=== PATIENT | female | born 1985 ===

== ENCOUNTER 2021-01-31 14:34 | Emergency (ER) | payer OTHER ==
--- NOTE | 2021-01-31 18:26 | ER ---
Nurse's Notes [facility] Name: Laurita Tafoya Age: 36 yrs Sex: Female : 1985 Arrival Date: 01/31/2021 Time: 14:36 Bed 24 Private MD: Diagnosis: Other depressive episodes;Anxiety disorder, unspecified Presentation: 01/31 14:44 Chief complaint: Patient states: "We found a bat this morning in my daughters room and vg1 its been for a couple weeks and feel like something may have happened to my kids". Coronavirus screen: Client denies travel out of the [place] in the last 14 days. Ebola Screen: Patient negative for fever greater than or equal to 101.5 degrees Fahrenheit, and additional compatible Ebola Virus Disease symptoms. Initial Sepsis Screen: Does the patient meet any 2 criteria? No. Patient's initial sepsis screen is negative. Does the patient have a suspected source of infection? No. Patient's initial sepsis screen is negative. Risk Assessment: Do you want to hurt yourself or someone else? Patient reports no desire to harm self or others. Onset of symptoms was January 31, 2021. 14:44 Method Of Arrival: Ambulatory vg1 14:44 Acuity: JO ANN 3 vg1 Triage Assessment: 14:46 General: Appears in no apparent distress. uncomfortable, Behavior is cooperative, vg1 anxious. Pain: Denies pain. 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 - Social history:: Smoking status: Patient denies any tobacco usage or history of. Screenin:56 Abuse screen: Denies threats or abuse. Denies injuries from another. Nutritional zb screening: No deficits noted. Tuberculosis screening: No symptoms or risk factors identified. Fall Risk None identified. Assessment: 16:56 General: Appears in no apparent distress. Behavior is anxious, flat. Pain: Denies pain. zb Neuro: Level of Consciousness is awake, alert, obeys commands, Oriented to person, place, time, situation. Cardiovascular: Patient's skin is warm and dry. Respiratory: Airway is patent. GI: No deficits noted. Derm: Skin is intact, is healthy with good turgor. Musculoskeletal: Range of motion: intact in all extremities. 18:16 Reassessment: Patient appears in no apparent distress at this time. Patient and/or zb family updated on plan of care and expected duration. Pain level reassessed. Patient is alert, oriented x 3, equal unlabored respirations, skin warm/dry/pink. hospitalist at bedside. 18:38 Reassessment: Patient appears in no apparent distress at this time. Patient and/or zb family updated on plan of care and expected duration. Pain level reassessed. Patient is alert, oriented x 3, equal unlabored respirations, skin warm/dry/pink. d/c instructions given. patient ambulated out with . gait even and steady. Vital Signs: 14:44 BP 138 / 97; Pulse 101; Resp 18; Temp 98.9; Pulse Ox 100% ; Weight 58.97 kg; Height 5 vg1 ft. 4 in. (162.56 cm); Pain 0/10; 16:57 BP 122 / 85; Pulse 85; Resp 16; Pulse Ox 100% on R/A; zb 18:17 BP 124 / 74; Pulse 84; Resp 16; Pulse Ox 98% on R/A; zb 14:44 Body Mass Index 22.31 (58.97 kg, 162.56 cm) vg1 ED Course: 14:36 Patient arrived in ED. bp1 14:46 Triage completed. vg1 14:46 Arm band placed on Patient placed in waiting room, Patient notified of wait time. vg1 16:35 Cain Pang PA is PHCP. jm 16:35 Aquilino Zepeda MD is Attending Physician. jmm 16:55 Thuy Arias, RN is Primary Nurse. zb 16:56 Patient has correct armband on for positive identification. Bed in low position. Call zb light in reach. Pulse ox on. NIBP on. Door closed. Noise minimized. 17:37 Aquilino Zepeda MD is Attending Physician. kdr 18:16 Thuy Arias, RN is Primary Nurse. zb 18:39 No provider procedures requiring assistance completed. Patient did not have IV access zb during this emergency room visit. Administered Medications: No medications were administered Outcome: 18:25 Discharge ordered by . kdr 18:39 Discharged to home ambulatory. zb 18:39 Condition: stable 18:39 Discharge instructions given to patient, Instructed on discharge instructions, follow up and referral plans. medication usage, Demonstrated understanding of instructions, follow-up care, medications, Prescriptions given X 1. 18:39 Patient left the ED. zb Signatures: Aquilino Zepeda MD MD kdr Mickail, Joel, PA PA jmm Garcia, Victoria, RN RN vg1 Val Reyes Zipporah, RN RN zb Corrections: (The following items were deleted from the chart) 14:49 14:44 Acuity: JO ANN 4 vg1 vg1
--- NOTE | 2021-01-31 18:26 | EDPHYS ---
Physician Documentation [facility] Name: Laurita Tafoya Age: 36 yrs Sex: Female : 1985 Arrival Date: 01/31/2021 Time: 14:36 Bed 24 Private MD: ED Physician Aquilino Zepeda HPI: 01/31 18:30 This 36 yrs old Female presents to ER via Ambulatory with complaints of kdr Anxiety. 18:30 The patient presents to the emergency department with anxiety, Possible rabid bat kdr exposure, depression, Recently started on Lexapro for depression. Has had depression in the past but has not sought treatment until now. She has an appointment tonight with counselor/psychiatrist at 7:00 PM. She denies SI/HI or any past history of materialized self harm.. Onset: The symptoms/episode began/occurred at an unknown time. and became worse and became persistent. Past psychiatric history: Prior diagnosis: no previous psychiatric diagnosis known, Psychiatric medications include: none, Primary psychiatric physician: the patient does not have a primary psychiatric physician, the patient has not had a prior suicide gesture, the patient does not have a previous inpatient psychiatric history. Associated signs and symptoms: Pertinent positives; anxiety, depression, Pertinent negatives: abdominal pain, homicidal ideation, palpitations, paranoia, suicide ideation. Severity of symptoms: At their worst the symptoms were mild moderate just prior to arrival, in the emergency department the symptoms are unchanged. The patient has not experienced similar symptoms in the past. The patient has been recently seen by a physician: the patient's primary care provider. 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 - Social history:: Smoking status: Patient denies any tobacco usage or history of. ROS: 18:30 Constitutional: Negative for fever, chills, and weight loss, Eyes: Negative for injury, kdr pain, redness, and discharge, ENT: Negative for injury, pain, and discharge, Neck: Negative for injury, pain, and swelling, Cardiovascular: Negative for chest pain, palpitations, and edema, Respiratory: Negative for shortness of breath, cough, wheezing, and pleuritic chest pain, Abdomen/GI: Negative for abdominal pain, nausea, vomiting, diarrhea, and constipation, Back: Negative for injury and pain, : Negative for injury, bleeding, discharge, and swelling, MS/Extremity: Negative for injury and deformity, Skin: Negative for injury, rash, and discoloration, Neuro: Negative for headache, weakness, numbness, tingling, and seizure activity. Allergy/Immunology: Negative for hives, rash, and allergies, Endocrine: Negative for neck swelling, polydipsia, polyuria, polyphagia, and marked weight changes, Hematologic/Lymphatic: Negative for swollen nodes, abnormal bleeding, and unusual bruising. 18:30 Psych: Positive for anxiety, depression, Negative for drug dependence, alcohol dependence, auditory hallucinations, visual hallucinations, homicidal ideation, insomnia, suicide gesture, suicidal ideation. Exam: 18:30 Constitutional: This is a well developed, well nourished patient who is awake, alert, kdr and in no acute distress. 18:30 Psych: Behavior/mood is pleasant, cooperative, anxious, inappropriate for age, Affect is flat, Oriented to person, place, time, Patient has no thoughts/intents to harm self or others. Judgement / Insight is normal. Memory is normal. Delusions/hallucinations are not present. Vital Signs: 14:44 BP 138 / 97; Pulse 101; Resp 18; Temp 98.9; Pulse Ox 100% ; Weight 58.97 kg; Height 5 vg1 ft. 4 in. (162.56 cm); Pain 0/10; 16:57 BP 122 / 85; Pulse 85; Resp 16; Pulse Ox 100% on R/A; zb 18:17 BP 124 / 74; Pulse 84; Resp 16; Pulse Ox 98% on R/A; zb 14:44 Body Mass Index 22.31 (58.97 kg, 162.56 cm) vg1 MDM: 18:25 Patient medically screened. kdr 18:30 Data reviewed: vital signs, nurses notes. Counseling: I had a detailed discussion with kdr the patient and/or guardian regarding: the historical points, exam findings, and any diagnostic results supporting the discharge/admit diagnosis, the need for outpatient follow up. Administered Medications: No medications were administered Disposition Summary: 01/31/21 18:25 Discharge Ordered Location: Home kdr Problem: an acute exacerbation kdr Symptoms: are unchanged kdr Condition: Stable kdr Diagnosis - Other depressive episodes kdr - Anxiety disorder, unspecified kdr Followup: kdr - With: Private Physician - When: 2 - 3 days - Reason: If symptoms return, Further diagnostic work-up, Recheck today's complaints, Continuance of care, Re-evaluation by your physician Discharge Instructions: - Discharge Summary Sheet kdr - Generalized Anxiety Disorder, Adult kdr - Managing Anxiety, Adult kdr Forms: - Medication Reconciliation Form kdr - Thank You Letter kdr Prescriptions: - Ativan 1 mg Oral Tablet - take 1 tablet by ORAL route At bedtime As needed; 3 tablet; Refills: 0, Product kdr Selection Permitted Signatures: Aquilino Zepeda MD MD kdr Garcia, Victoria RN RN vg1
[2021-01-31 19:20] VITALS: TEMP 98.9
[2021-01-31 19:24] VITALS: BP 124/74; O2SAT 98
== END 2021-01-31 18:39 | disposition home or self-care (01) ==
LOC: ER 14:34
DX: F32.89 Other specified depressive episodes (principal)
CPT/HCPCS: 99283